=== PATIENT | male | born 1940 | race Caucasian/White ===

== ENCOUNTER 2019-03-08 22:37 | Inpatient (IN) | payer OTHER ==
[~2019-03-08] VITALS: Ht 180.3 cm
--- NOTE | 2019-03-08 22:51 | NUR ---
PTE REFIERE KAITY DOLOR ABDOMINAL SE JOANN S/V YSE UBICA EN AREA DE OBSERVACION
--- NOTE | 2019-03-09 00:43 | NUR ---
EVALUA PTE. SE ORIENTA A PTE SOBRE [place] MEDICO. PTE REFIERE COMPRENDER. SE COLECTAN MUESTRAS DE LABORATORIO BAJO MEDIDAS ASEPTICAS. SE ADMINISTRAN MEDICAMENTOS ALIA ORDEN MEDICA. PROCEDIMIENTOS LLEVADOS A CABO POR .
[2019-03-19] MEDS ORDERED: VITAMIN B-121000 MCG PO (15:15)
[2019-03-24] MEDS ORDERED: FLUCONAZOLE100 MG PO (10:38)
[2019-03-24] MEDS ORDERED: PROTONIX40 MG PO (10:38)
== END 2019-03-24 13:51 | disposition home or self-care (01) | DRG 326 ==
LOC: ER 22:37 → ICU 03-09 05:36 → SEC-K 03-09 05:36 → ICU 03-09 12:59 → SURG 03-21 11:01
PROVIDERS: ADMIT Surgery
PROC: 0WJH0ZZ Inspection of Retroperitoneum, Open Approach (ICD-10-PCS; 2019-03-09)
PROC: 0DQ60ZZ Repair Stomach, Open Approach (ICD-10-PCS; 2019-03-09)
PROC: 5A1955Z Respiratory Ventilation, Greater than 96 Consecutive Hours (ICD-10-PCS; 2019-03-09)
PROC: 0BH17EZ Insertion of Endotracheal Airway into Trachea, Via Natural or Artificial Opening (ICD-10-PCS; 2019-03-09)
PROC: 4A033R1 Measurement of Arterial Saturation, Peripheral, Percutaneous Approach (ICD-10-PCS; 2019-03-09)
PROC: BW21ZZZ Computerized Tomography (CT Scan) of Abdomen and Pelvis (ICD-10-PCS; 2019-03-09)
PROC: 0D160ZA Bypass Stomach to Jejunum, Open Approach (ICD-10-PCS; principal; 2019-03-09 09:30)
DX: K25.1 Acute gastric ulcer with perforation (principal); J96.00 Acute respiratory failure, unspecified whether with hypoxia or hypercapnia; K65.0 Generalized (acute) peritonitis; A41.89 Other specified sepsis; R65.21 Severe sepsis with septic shock; E87.2 Acidosis; D62 Acute posthemorrhagic anemia; Z99.11 Dependence on respirator [ventilator] status; J90 Pleural effusion, not elsewhere classified; K56.690 Other partial intestinal obstruction; K92.1 Melena; K40.90 Unilateral inguinal hernia, without obstruction or gangrene, not specified as recurrent; F17.210 Nicotine dependence, cigarettes, uncomplicated; E87.6 Hypokalemia; E83.39 Other disorders of phosphorus metabolism; J98.6 Disorders of diaphragm

== ENCOUNTER 2019-08-06 11:36 | Outpatient (CLI) | payer OTHER ==
[~2019-08-06 11:36] MED LIST: FLUCONAZOLE100 MG PO; PROTONIX40 MG PO; VITAMIN B-121000 MCG PO
== END 2019-08-06 12:00 | disposition home or self-care (01) ==
LOC: NUCLEAR 11:36
DX: I73.9 Peripheral vascular disease, unspecified (principal)

== ENCOUNTER 2019-08-06 11:46 | Outpatient (CLI) | payer OTHER | END 2019-08-06 13:59 | disposition home or self-care (01) | LOC: RAD 11:46 | DX: I73.89 Other specified peripheral vascular diseases (principal); R60.1 Generalized edema; M13.871 Other specified arthritis, right ankle and foot; M13.872 Other specified arthritis, left ankle and foot ==

== ENCOUNTER 2019-08-07 10:51 | Outpatient (CLI) | payer OTHER | END 2019-08-07 11:30 | disposition home or self-care (01) | LOC: NUCLEAR 10:51 | DX: I87.2 Venous insufficiency (chronic) (peripheral) (principal) ==

== ENCOUNTER → 2021-03-24 10:16 | Outpatient (CLI) | payer OTHER | END | disposition home or self-care (01) | LOC: LAB 10:16 | PROVIDERS: ATTEND Radiology Diagnostic Radiology | DX: N20.0 Calculus of kidney (principal); R10.9 Unspecified abdominal pain; N40.0 Benign prostatic hyperplasia without lower urinary tract symptoms; Z51.81 Encounter for therapeutic drug level monitoring ==

== ENCOUNTER 2021-03-26 10:00 | Outpatient (CLI) | payer OTHER | END 2021-03-26 10:17 | disposition home or self-care (01) | LOC: TOM 10:00 | DX: K40.90 Unilateral inguinal hernia, without obstruction or gangrene, not specified as recurrent (principal) | CPT/HCPCS: 74177; Q9965 ==

== ENCOUNTER 2021-08-06 09:00 | Day surgery (SDC) | payer OTHER ==
[2021-08-06] MEDS ORDERED: MIRALAX17 GM PO (14:16)
[2021-08-06] MEDS ORDERED: TYLENOL ARTHRI650 MG PO (14:16)
[2021-08-06] MEDS ORDERED: ULTRAM50 MG PO (14:16)
== END 2021-08-06 20:40 | disposition home or self-care (01) ==
LOC: CIR.AMB 09:00
PROVIDERS: ATTEND Surgery
DX: K40.90 Unilateral inguinal hernia, without obstruction or gangrene, not specified as recurrent (principal); Z20.822 Contact with and (suspected) exposure to COVID-19

== ENCOUNTER 2021-08-10 20:06 | Emergency (ER) | payer OTHER ==
[~2021-08-10] VITALS: Ht 175.3 cm; Wt 52.2 kg
[~2021-08-10 20:06] MED LIST changes: +MIRALAX17 GM PO; +TYLENOL ARTHRI650 MG PO; +ULTRAM50 MG PO
[2021-08-10] MEDS ORDERED: PROTONIX40 M1 (20:43)
[2021-08-10] MEDS ORDERED: PROTONIX20 MG PO (20:43)
[2021-08-10] MEDS ORDERED: TAMS0.4C PO (22:59)
[2021-08-10] MEDS ORDERED: CIPRO500 MG PO (22:59)
== END 2021-08-10 23:27 | disposition home or self-care (01) ==
LOC: ER 20:06
DX: R33.8 Other retention of urine (principal)

== ENCOUNTER 2022-08-23 08:32 | Outpatient (CLI) | payer OTHER ==
[~2022-08-23 08:32] MED LIST changes: +CIPRO500 MG PO; +PROTONIX20 MG PO; +PROTONIX40 M1; +TAMS0.4C PO
== END 2022-08-23 08:38 | disposition home or self-care (01) ==
LOC: TOM 08:32
PROVIDERS: ATTEND Internal Medicine Pulmonary Disease
DX: J43.2 Centrilobular emphysema (principal); R91.1 Solitary pulmonary nodule; Z87.891 Personal history of nicotine dependence